=== PATIENT | female | born 1975 | race Asian ===

== ENCOUNTER 2016-11-08 09:54 | Outpatient (CLI) | payer OTHER | END 2016-11-08 23:41 | disposition home or self-care (01) | LOC: RAD 09:54 | DX: M54.5 Low back pain (principal) ==

== ENCOUNTER 2016-12-19 11:08 | Outpatient (CLI) | payer OTHER | END 2016-12-19 19:42 | disposition home or self-care (01) | LOC: MRI 11:08 | DX: M54.17 Radiculopathy, lumbosacral region (principal) ==

== ENCOUNTER 2018-11-24 13:15 | Emergency (ER) | payer OTHER ==
[~2018-11-24] VITALS: Ht 157.5 cm; Wt 79.4 kg
[2018-11-24 13:21] VITALS: BP 131/92; TEMP 98.4
== END 2018-11-24 16:20 | disposition home or self-care (01) ==
LOC: ED 13:15
DX: M79.601 Pain in right arm (principal); J06.9 Acute upper respiratory infection, unspecified; R05 Cough
CPT/HCPCS: 99283

== ENCOUNTER 2019-03-19 11:35 | Outpatient (CLI) | payer OTHER | END 2019-03-19 23:35 | disposition home or self-care (01) | LOC: RAD 11:35 | DX: M25.561 Pain in right knee (principal) ==

== ENCOUNTER 2019-12-05 09:56 | Emergency (ER) | payer OTHER ==
[~2019-12-05] VITALS: Ht 157.5 cm; Wt 81.6 kg
[2019-12-05 10:43] LABS: PLATELET COUNT 303 K/uL (152-353)
[2019-12-05 10:52] LABS: POTASSIUM 4.2 mmol/L (3.6-5.2)
[2019-12-05 12:35] VITALS: BP 144/99; TEMP 97.7
== END 2019-12-05 12:35 | disposition home or self-care (01) ==
LOC: ED 09:56
PROVIDERS: Family Medicine
DX: J20.9 Acute bronchitis, unspecified (principal); R05 Cough; F17.210 Nicotine dependence, cigarettes, uncomplicated
CPT/HCPCS: 80053; 81000; 81025; 85027; 87502; 94664; 99283; J1100

== ENCOUNTER 2019-12-27 10:15 | Emergency (ER) | payer OTHER ==
[~2019-12-27] VITALS: Ht 157.5 cm; Wt 81.6 kg
[2019-12-27 11:17] VITALS: BP 136/84; TEMP 97.8
== END 2019-12-27 11:17 | disposition home or self-care (01) ==
LOC: ED 10:15
DX: Z04.89 Encounter for examination and observation for other specified reasons (principal)
CPT/HCPCS: 87502; 87651; 99282; 99283

== ENCOUNTER 2021-03-07 21:52 | Emergency (ER) | payer OTHER ==
[~2021-03-07] VITALS: Ht 157.5 cm; Wt 88.0 kg
[2021-03-07 22:54] LABS: PLATELET COUNT 319 K/uL (152-353)
[2021-03-07 23:23] LABS: POTASSIUM 3.6 mmol/L (3.6-5.2)
[2021-03-08 00:10] VITALS: BP 136/80; TEMP 98.6
== END 2021-03-08 00:10 | disposition home or self-care (01) ==
LOC: ED 21:52
PROVIDERS: Emergency Medicine
DX: N39.0 Urinary tract infection, site not specified (principal); R10.84 Generalized abdominal pain; M54.89 Other dorsalgia
CPT/HCPCS: 36415; 80053; 81000; 81025; 82150; 83690; 85027; 96374; 99284; J1885

== ENCOUNTER 2021-03-13 20:22 | Emergency (ER) | payer OTHER ==
[~2021-03-13] VITALS: Ht 157.5 cm; Wt 88.0 kg
[2021-03-13 20:29] VITALS: TEMP 98.8
[2021-03-13 21:09] LABS: PLATELET COUNT 345 K/uL (152-353)
[2021-03-13 21:28] LABS: POTASSIUM 4.6 mmol/L (3.6-5.2); SODIUM 140 mmol/L (136-145)
[2021-03-13 22:07] LABS: PARTIAL THROMBOPLASTIN TIME 28.5 SECONDS (24.5-33.6)
[2021-03-13 22:15] VITALS: BP 154/89
== END 2021-03-13 22:15 | disposition home or self-care (01) ==
LOC: ED 20:22
PROVIDERS: Hospitalist
DX: M54.12 Radiculopathy, cervical region (principal); M54.2 Cervicalgia
CPT/HCPCS: 36415; 80053; 82550; 82553; 83880; 84484; 85027; 85379; 85610; 85730; 93005; 96374; 96375; 99284; J1885; J2930

== ENCOUNTER 2021-07-08 11:32 | Emergency (ER) | payer OTHER ==
[~2021-07-08] VITALS: Ht 157.5 cm; Wt 88.0 kg
[2021-07-08 11:40] VITALS: BP 124/103; TEMP 97.2
== END 2021-07-08 11:55 | disposition home or self-care (01) ==
LOC: ED 11:32
DX: Z53.21 Procedure and treatment not carried out due to patient leaving prior to being seen by health care provider (principal)
CPT/HCPCS: 99281

== ENCOUNTER 2022-07-11 09:23 | Emergency (ER) | payer OTHER ==
[~2022-07-11] VITALS: Ht 157.5 cm; Wt 88.0 kg
[2022-07-11 09:32] VITALS: BP 179/112; TEMP 99.1
== END 2022-07-11 12:43 | disposition home or self-care (01) ==
LOC: ED 09:23
DX: J11.1 Influenza due to unidentified influenza virus with other respiratory manifestations (principal); F17.210 Nicotine dependence, cigarettes, uncomplicated
CPT/HCPCS: 87502; 87651; 99283; J1885

== ENCOUNTER 2023-03-06 16:20 | Emergency (ER) | payer OTHER ==
[~2023-03-06] VITALS: Ht 157.5 cm; Wt 68.0 kg
[2023-03-06 17:05] LABS: PLATELET COUNT 353 K/uL (152-353)
[2023-03-06 17:55] VITALS: BP 138/84; TEMP 98.8
== END 2023-03-06 17:55 | disposition home or self-care (01) ==
LOC: ED 16:20
PROVIDERS: Emergency Medicine
DX: K52.9 Noninfective gastroenteritis and colitis, unspecified (principal); I10 Essential (primary) hypertension; F17.210 Nicotine dependence, cigarettes, uncomplicated
CPT/HCPCS: 80053; 81002; 82150; 84484; 85027; 93005; 99283